=== PATIENT | female | born 1970 | race Caucasian/White ===

== ENCOUNTER 2023-06-06 23:55 | Emergency (ER) | payer OTHER, SELFPAY ==
[2023-06-07 00:07] VITALS: BP 124/84
--- NOTE | 2023-06-07 02:09 | ED.GENMED ---
History of Present Illness
General
Chief Complaint: Facial Problem
Source: patient, records and spouse
Exam Limitations: none
Time Seen by Provider: 06/07/23 01:45
Nursing documentation reviewed up to this point in time: agreed with
Travel History
Have you had any contact with someone who has COVID-19?: No
Do you have any symptoms of coronavirus? Fever > 100 degrees, chills, cough, shortness of breath, sore throat, loss of taste or smell, muscle aches, or headache?: No
History of Present Illness
History of Present Illness:
Patient is a 53-year-old female who presents to the emergency department after noticing the right lower lip on her face sagging while brushing her teeth tonight at about 10 or 11 PM. Patient states that on 28 May she had Botox injected into her
neck and face and had been fine until tonight. Patient denies any visual or speech difficulties. Patient has ongoing left eye problems due to the vitreous problem for which she is seeing ophthalmology. This is unchanged. Patient denies any focal
weakness or ataxia. Patient denied any chest pain or palpitations. Patient denies any recent fever or chills, nasal congestion, sore throat or cough. Patient denies any joint pain or rashes. Patient has no pets and is not outside.
Past History
Past History
ED Past Medical History: Hypercholesterolemia; Negative CAD, Cancer, HTN or IDDM
ED Past Surgical History: Orthopedic and Other (Cosmetic); Negative Appendectomy, Bowel resection, Cardiac, Cholecystectomy or
Social History
Tobacco: Non-smoker
Alcohol: None
Drug: None
Personal:
Living: with family
Employment: Employed
Family History
Family History: Hypertension
Review of Systems
Review of Systems
All Other Systems: Not applicable
Phy Exam
Physical Exam
Physical Exam:
Physical Exam
General: No apparent distress, alert and appropriate, well nourished, well hydrated
HENT: Normocephalic, supple with no lymphadenopathy, no thyromegaly. Right lower lip droops with smile
Eyes: Clear sclera, conjuctiva without injection
Heart: Regular rhythm and rate. No S3, S4. No murmur. No bruit
Lungs: No respiratory distress, no stridor, lung sounds clear and equal bilaterally
Neuro: Alert and oriented x 3, CN II - XII intact except for inferior right facial nerve root with mild involvement of the right lower lip, no motor focality, no cerebellar dysfunction
Skin: no rash
Psychiatric: well kept. interactive and cooperative
Extremities: No edema, cyanosis
Course
Orders/Labs/Results
Orders:
Orders
06/07/23 02:08
Prednisone [Deltasone] 50 mg PO NOW STA
Vital Signs
Initial and Last Documented VS:
Initial Vital Signs
Temp Pulse Resp BP Pulse Ox
99.1 F 87 20 124/84 99
06/07/23 00:07 06/07/23 00:07 06/07/23 00:07 06/07/23 00:07 06/07/23 00:07
Last Documented Vital Signs
Temp Pulse Resp BP Pulse Ox
99.1 F 87 20 124/84 99
06/07/23 00:07 06/07/23 00:07 06/07/23 00:07 06/07/23 00:07 06/07/23 00:07
*Radiology
Radiology exam reviewed: other (na)
*Pulse Oximetry
Patient hypoxic: no
*EKG
Interpreted by ED Provider?: NA
*Loan Underwriter Interpretation
Rate: Loan Underwriter- N/A
*Critical Care Note
Total Time (30-74mins, 75-104mins- exclusive of procedures): Not Applicable
Update Note
Update Note:
Patient is supposed to see her primary care physician for routine visit in 2 days. Had extensive conversation with the patient and her . 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 Patient has
no taste or hearing issues. Patient would like to start the steroids. Patient will be discharged.
ED Attending Note
-
Portions of this chart may have been created with voice recognition software.� Occasional wrong word or��sound alike� substitutions may have occurred due to the inherent limitations of voice recognition software.
Discharge Plan
Departure
Patient Disposition: Home (Routine Discharge)
Date of Disposition: 06/07/23
Time of Disposition: 02:13
Patient with high blood pressure during this ER visit?: No
Condition: Good
Covid-19: Not Applicable
Discharge Problem:
Jain's palsy
Instructions: Jain's Palsy (DC)
Prescriptions:
New
prednisone 20 mg tablet
20 mg PO BID Qty: 14 0RF
No Action
Albuterol
2 puff PRN PRN (Reason: sob)
naproxen sodium [Aleve] 220 MG tablet
2 tab PO PRN (Reason: pain)
Referrals:
Frieda Daniels CRNP [Family Provider] - Keep scheduled appt
Interventions
Interventions:
*General Assessment Last Done: 06/07/23 00:07
*Neglect/Abuse Screening Last Done: 06/07/23 00:07
ED- Fall Risk Assessment Last Done: 06/07/23 00:07
*ED COVID-19 Vaccine History Last Done: 06/07/23 00:07
[2023-06-07 02:12] VITALS: BP 106/77
[2023-06-07] MEDS: DELTASONE 50 MG PO (02:27)
== END 2023-06-07 02:44 | disposition home or self-care (01) ==
LOC: EMR 23:55
PROVIDERS: EMERGENCY PHYSICIAN Emergency Medicine; FAMILY PHYSICIAN Nurse Practitioner Family
DX: G51.0 Bell's palsy (principal)
CPT/HCPCS: 99283

== ENCOUNTER → 2023-11-12 13:59 | Outpatient (REF) | payer MEDICARE, SELFPAY | LOC: WDC 13:59 | PROVIDERS: ATTENDING PHYSICIAN Obstetrics & Gynecology; FAMILY PHYSICIAN Nurse Practitioner Family | DX: R92.2 Inconclusive mammogram (principal); R92.343 Mammographic extreme density, bilateral breasts | CPT/HCPCS: 76641 ==

== ENCOUNTER → 2023-11-19 11:37 | Outpatient (REF) | payer MEDICARE, SELFPAY | LOC: WDC 11:37 | PROVIDERS: ATTENDING PHYSICIAN Obstetrics & Gynecology; FAMILY PHYSICIAN Nurse Practitioner Family | DX: Z12.31 Encounter for screening mammogram for malignant neoplasm of breast (principal) | CPT/HCPCS: 77063; 77067 ==